=== PATIENT | female | born 1935 | race Two or more races ===

== ENCOUNTER 2024-01-12 12:45 | Inpatient (IN) | payer MEDICARE, MEDICAID ==
[~2024-01-12] VITALS: Ht 152.4 cm; Wt 48.3 kg
[~2024-01-12 12:45] MED LIST: ALEN70TA74 PO; CHOL20009 PO; ESTR0.1C5 VA; LEV75T PO; LISI10TA34 PO; MORP30TA PO; TRAV0.00 EACHEYE
[2024-01-12] MEDS: SODIUM CHLORIDE 0.9% 1,000 ML IV ONE (13:28)
[2024-01-12] MEDS: ONDANSETRON HCL 4 MG/2 ML VIAL IV ONE (13:37)
[2024-01-12] MEDS: MORPHINE SULFATE 4 MG/ML SYR/VIAL IV ONE (13:37)
[2024-01-12] MEDS: PANTOPRAZOLE 40 MG/10 ML VIAL INJ IV ONE (13:37)
[2024-01-12 13:44] LABS: Eosinophils # (auto) 0 10 ^3/uL (0-0.8); Hemoglobin 11.2 g/dL (12.2-16.2); Monocytes # (auto) 0.3 10 ^3/uL (0-1.3); Neutrophils # (auto) 7.3 10 ^3/uL (1.6-8.6)
[2024-01-12 13:47] LABS: Basophils # (auto) 0 10 ^3/uL (0-0.2); Basophils % (auto) 0.4 % (0.0-2.0); Eosinophils % (auto) 0.2 % (0.0-7.0); Hematocrit 33.2 % (36.0-46.0); Lymphocytes # (auto) 0.7 10 ^3/uL (0.4-5.4); Lymphocytes % (auto) 8.2 % (10.0-50.0); Mean Corpuscular Hemoglobin 28.7 pg (28.0-32.0); Mean Corpuscular Hgb Conc. 33.8 g/dL (32.0-36.0); Mean Corpuscular Volume 84.9 fL (80.0-100.0); Monocytes % (auto) 4.1 % (0.0-12.0); Neutrophils % (auto) 87.1 % (37.0-80.0); Red Blood Cells 3.91 10^6/uL (4.0-5.20); White Blood Cell 8.3 10^3/uL (4.4-10.8)
[2024-01-12] MEDS ORDERED: TEMAZEPAM 15 MG CAP PO PRN (14:45)
[2024-01-12] MEDS ORDERED: ACETAMINOPHEN 325 MG TAB PO PRN (14:45)
[2024-01-12] MEDS ORDERED: NITROGLYCERIN 0.4 MG SL TAB SL PRN (14:45)
[2024-01-12] MEDS: ENOXAPARIN SOD 40 MG/0.4 ML SYRINGE SC SCH (14:47)
[2024-01-12 15:36] LABS: Albumin 3.9 g/dL (3.2-4.8); Alkaline Phosphatase 70 U/L (46-116); Anion Gap 12 (5-15); Aspartate Aminotransferase < 8 U/L (13-40); BUN/Creatinine Ratio 29.8 (10.0-20.0); Calcium 8.8 mg/dL (8.7-10.4); Carbon Dioxide 14 mmol/L (20-30); Chloride 112 mmol/L (98-107); Glucose 138 mg/dL (74-106); Sodium 138 mmol/L (136-145)
[2024-01-12 15:37] LABS: Bilirubin, Total 0.2 mg/dL (0.2-1.0); Total Protein 7.5 g/dL (5.7-8.2)
[2024-01-12 15:41] LABS: Alanine Aminotransferase < 9 U/L (7-40)
[2024-01-12 15:44] LABS: Blood Urea Nitrogen 138 mg/dL (9-23); Potassium 5.8 mmol/L (3.5-5.1)
[2024-01-12 16:51] VITALS: PULSE 86; RESP 16; O2SAT 98
[2024-01-12 17:00] LABS: INR 1.3 (0.9-1.15); Prothrombin Time 13.5 sec (9.3-11.8)
[2024-01-12 18:33] LABS: Lipase 46 U/L (12-53)
[2024-01-12 19:30] VITALS: PULSE 89; RESP 13; O2SAT 97
[2024-01-12] MEDS: SODIUM CHLORIDE 0.9% 1,000 ML IV SCH ×2 (19:30)
[2024-01-12 20:30] LABS: Urine Bacteria None Seen /hpf (None Seen)
[2024-01-12 20:37] LABS: Urine Blood 1+ /uL (Negative); Urine Clarity Ex.Turbid (Clear); Urine Color Dark-Brown (Yellow); Urine Protein, UAD 1+ (Negative); Urine Specific Gravity 1.017 (1.001-1.035); Urine Urobilinogen Normal (Negative); Urine WBC 576 /hpf (0 - 5); Urine WBC Clumps PRESENT /hpf (None Seen)
[2024-01-12] MEDS: InsuLIN REG 1unit/0.01ml Soln (100units/ml) IV ONE (21:45)
[2024-01-12] MEDS: ALBUTEROL SULF 2.5 MG/0.5ML(0.5%) NEB SOLN ONE (22:01)
[2024-01-12] MEDS: ALBUTEROL SULF 2.5 MG/0.5ML(0.5%) NEB SOLN NEB ONE (22:01)
[2024-01-12] MEDS: SODIUM ZIRCONIUM CYCL 10 GM PAK PO ONE (22:51)
[2024-01-12] MEDS: DEXTROSE (50%) 50ML SYRG IV ONE (22:51)
[2024-01-12] MEDS: CALCIUM GLUC 1,000mg/50ml-NS 50 ML IV ONE (22:51)
[2024-01-13] VITALS (12 sets, daily range): BP systolic 94–142; BP diastolic 46–61; PULSE 82–109; RESP 12–20; TEMP 97.9–98.3; O2SAT 94–100
[2024-01-13 07:11] LABS: Basophils # (auto) 0 10 ^3/uL (0-0.2); Basophils % (auto) 0.6 % (0.0-2.0); Eosinophils # (auto) 0 10 ^3/uL (0-0.8); Eosinophils % (auto) 0.6 % (0.0-7.0); Hematocrit 27.9 % (36.0-46.0); Hemoglobin 9.3 g/dL (12.2-16.2); Lymphocytes # (auto) 1.3 10 ^3/uL (0.4-5.4); Lymphocytes % (auto) 17.4 % (10.0-50.0); Mean Corpuscular Hemoglobin 28.6 pg (28.0-32.0); Mean Corpuscular Hgb Conc. 33.3 g/dL (32.0-36.0); Monocytes # (auto) 0.4 10 ^3/uL (0-1.3); Monocytes % (auto) 5.8 % (0.0-12.0); Neutrophils # (auto) 5.5 10 ^3/uL (1.6-8.6); Neutrophils % (auto) 75.6 % (37.0-80.0); Red Blood Cells 3.24 10^6/uL (4.0-5.20); Red Cell Distribution Width 17.1 % (11.8-14.3); White Blood Cell 7.3 10^3/uL (4.4-10.8)
[2024-01-13 07:31] LABS: Albumin 3.4 g/dL (3.2-4.8); Alkaline Phosphatase 59 U/L (46-116); Anion Gap 9 (5-15); Aspartate Aminotransferase < 8 U/L (13-40); Bilirubin, Total 0.2 mg/dL (0.2-1.0); Calcium 8.9 mg/dL (8.7-10.4); Carbon Dioxide 15 mmol/L (20-30); Chloride 119 mmol/L (98-107); Glucose 122 mg/dL (74-106); Potassium 5.1 mmol/L (3.5-5.1); Sodium 143 mmol/L (136-145); Total Protein 6.7 g/dL (5.7-8.2)
[2024-01-13 07:43] LABS: Alanine Aminotransferase < 9 U/L (7-40)
[2024-01-13 07:44] LABS: Blood Urea Nitrogen 106 mg/dL (9-23)
[2024-01-13] MEDS ORDERED: FLUMAZENIL 0.1 MG/ML INJ 10ML MDV IV ONE (08:25)
[2024-01-13] MEDS ORDERED: SODIUM CHLORIDE LOCK 10 ML ONE (08:25)
[2024-01-13] MEDS ORDERED: NALOXONE HCL 0.4 MG/ML VIAL ONE (08:25)
[2024-01-13] MEDS ORDERED: diphenhdrAMINE HCL 50 MG/1 ML VL ONE (08:26)
[2024-01-13] MEDS: LIDOCAINE VISCOUS 2% 15ML UD ONE (08:48)
[2024-01-13] MEDS: fentaNYL CITRATE 100 MCG/2 ML VL ONE (08:50)
[2024-01-13] MEDS: MIDAZOLAM HCL 5 MG/ML-1ML VIAL ONE (08:50)
[2024-01-13] MEDS ORDERED: PANTOPRAZOLE 40 MG/10 ML VIAL INJ IV SCH (10:00)
[2024-01-13] MEDS: SUCRALFATE 1 GM/10 ML ORAL SUSP PO SCH (11:25)
[2024-01-13] MEDS ORDERED: LATA0.008 EACHEYE (12:24)
[2024-01-13] MEDS: SODIUM CHLORIDE 0.9% 1,000 ML IV SCH (13:50)
[2024-01-13] MEDS: cefTRIAXone 1GM/50ML D5W 50 ML IV SCH (18:15)
[2024-01-13] MEDS: PANTOPRAZOLE 40 MG TAB PO SCH (18:15)
[2024-01-13] MEDS ORDERED: LORazepam 2MG/ML-1ML VIAL IV PRN (21:30)
[2024-01-13 22:42] LABS: Creatinine, Urine 35.83 mg/dL (30.0-125.0)
[2024-01-13 22:45] LABS: Protein, Urine 348.3 mg/dL (0.0-11.9); Urine Protein/Creatinine Ratio 9.72
[2024-01-13 22:49] LABS: Folate (Folic Acid) 7.86 ng/mL (>5.38)
[2024-01-14] VITALS (8 sets, daily range): BP systolic 95–143; BP diastolic 56–141; PULSE 52–100; RESP 12–20; TEMP 98–99.3; O2SAT 94–99
[2024-01-14 11:29] LABS: Chloride 125 mmol/L (98-107); Potassium 4.9 mmol/L (3.5-5.1)
[2024-01-14 11:30] LABS: Anion Gap 8 (5-15); Basophils # (auto) 0 10 ^3/uL (0-0.2); Basophils % (auto) 0.7 % (0.0-2.0); Carbon Dioxide 16 mmol/L (20-30); Eosinophils # (auto) 0.3 10 ^3/uL (0-0.8); Hematocrit 28.5 % (36.0-46.0); Hemoglobin 9.3 g/dL (12.2-16.2); Lymphocytes # (auto) 0.9 10 ^3/uL (0.4-5.4); Lymphocytes % (auto) 15.3 % (10.0-50.0); Mean Corpuscular Hemoglobin 27.9 pg (28.0-32.0); Mean Corpuscular Hgb Conc. 32.5 g/dL (32.0-36.0); Mean Corpuscular Volume 85.9 fL (80.0-100.0); Monocytes # (auto) 0.3 10 ^3/uL (0-1.3); Monocytes % (auto) 5.2 % (0.0-12.0); Neutrophils # (auto) 4.5 10 ^3/uL (1.6-8.6); Neutrophils % (auto) 73.8 % (37.0-80.0); Red Blood Cells 3.32 10^6/uL (4.0-5.20); Red Cell Distribution Width 18.2 % (11.8-14.3); White Blood Cell 6.1 10^3/uL (4.4-10.8)
[2024-01-14 11:31] LABS: Calcium 8.1 mg/dL (8.7-10.4)
[2024-01-14 11:32] LABS: % Iron Saturation 26.8 % (15-50)
[2024-01-14 11:35] LABS: Glucose 102 mg/dL (74-106)
[2024-01-14 11:36] LABS: BUN/Creatinine Ratio 30.1 (10.0-20.0)
[2024-01-14 11:37] LABS: Blood Urea Nitrogen 75 mg/dL (9-23); Sodium 149 mmol/L (136-145)
[2024-01-14] MEDS: HYDROcodone-ACET 5/325MG TAB PO PRN (19:36)
[2024-01-14] MEDS: SODIUM BICARBONATE 650 MG TAB PO SCH (21:35)
[2024-01-15] VITALS (10 sets, daily range): BP systolic 135–158; BP diastolic 64–91; PULSE 74–96; RESP 16–19; TEMP 97.8–98.9; O2SAT 97–100
[2024-01-15] MEDS: MORPHINE SULFATE INJ 2 MG/ml SYRG IV PRN (01:42)
[2024-01-15] MEDS: SOD CHL 0.45% 1,000 ML IV SCH (04:50)
[2024-01-15 07:54] LABS: Basophils # (auto) 0 10 ^3/uL (0-0.2); Basophils % (auto) 0.3 % (0.0-2.0); Eosinophils # (auto) 0.5 10 ^3/uL (0-0.8); Eosinophils % (auto) 5.9 % (0.0-7.0); Hematocrit 31.2 % (36.0-46.0); Hemoglobin 10.3 g/dL (12.2-16.2); Lymphocytes # (auto) 1.6 10 ^3/uL (0.4-5.4); Lymphocytes % (auto) 18.8 % (10.0-50.0); Mean Corpuscular Hemoglobin 28.5 pg (28.0-32.0); Mean Corpuscular Hgb Conc. 32.9 g/dL (32.0-36.0); Mean Corpuscular Volume 86.7 fL (80.0-100.0); Monocytes # (auto) 0.3 10 ^3/uL (0-1.3); Monocytes % (auto) 4.1 % (0.0-12.0); Neutrophils % (auto) 70.9 % (37.0-80.0); White Blood Cell 8.5 10^3/uL (4.4-10.8)
[2024-01-15 07:57] LABS: Albumin 3.3 g/dL (3.2-4.8); Alkaline Phosphatase 61 U/L (46-116); Anion Gap 9 (5-15); Aspartate Aminotransferase 9 U/L (13-40); BUN/Creatinine Ratio 20.2 (10.0-20.0); Bilirubin, Total 0.2 mg/dL (0.2-1.0); Calcium 8.6 mg/dL (8.7-10.4); Carbon Dioxide 16 mmol/L (20-30); Chloride 123 mmol/L (98-107); Glucose 100 mg/dL (74-106); Sodium 148 mmol/L (136-145); Total Protein 6.6 g/dL (5.7-8.2)
[2024-01-15 07:58] LABS: Alanine Aminotransferase < 9 U/L (7-40); Blood Urea Nitrogen 39 mg/dL (9-23)
[2024-01-15 09:06] LABS: Anti-Nuclear Antibody Direct Negative (Negative)
[2024-01-15] MEDS: ENOXAPARIN SOD 30 MG/0.3 ML SYRINGE SC SCH (10:14)
[2024-01-15] MEDS: ONDANSETRON HCL 4 MG/2 ML VIAL IV PRN (11:47)
[2024-01-15] MEDS: DOCUSATE SOD 100 MG CAP PO PRN (20:33)
[2024-01-16] VITALS (8 sets, daily range): BP systolic 131–156; BP diastolic 63–76; PULSE 70–104; RESP 14–20; TEMP 98–98.7; O2SAT 94–100
[2024-01-16 06:50] LABS: Basophils # (auto) 0 10 ^3/uL (0-0.2); Basophils % (auto) 0.1 % (0.0-2.0); Eosinophils # (auto) 0.2 10 ^3/uL (0-0.8); Eosinophils % (auto) 1.2 % (0.0-7.0); Hematocrit 30.6 % (36.0-46.0); Lymphocytes # (auto) 0.9 10 ^3/uL (0.4-5.4); Lymphocytes % (auto) 7.2 % (10.0-50.0); Mean Corpuscular Hemoglobin 27.6 pg (28.0-32.0); Mean Corpuscular Hgb Conc. 32.8 g/dL (32.0-36.0); Mean Corpuscular Volume 84.4 fL (80.0-100.0); Monocytes # (auto) 0.3 10 ^3/uL (0-1.3); Monocytes % (auto) 2.5 % (0.0-12.0); Neutrophils # (auto) 10.9 10 ^3/uL (1.6-8.6); Nucleated Red Blood Cells % 0.1 %; Red Blood Cells 3.62 10^6/uL (4.0-5.20); Red Cell Distribution Width 17.6 % (11.8-14.3); White Blood Cell 12.2 10^3/uL (4.4-10.8)
[2024-01-16 07:17] LABS: Albumin 3.2 g/dL (3.2-4.8); Alkaline Phosphatase 63 U/L (46-116); Anion Gap 9 (5-15); Aspartate Aminotransferase < 8 U/L (13-40); BUN/Creatinine Ratio 16.5 (10.0-20.0); Bilirubin, Total 0.2 mg/dL (0.2-1.0); Calcium 8.8 mg/dL (8.7-10.4); Carbon Dioxide 20 mmol/L (20-30); Chloride 120 mmol/L (98-107); Glucose 117 mg/dL (74-106); Potassium 3.3 mmol/L (3.5-5.1); Sodium 149 mmol/L (136-145); Total Protein 6.4 g/dL (5.7-8.2)
[2024-01-16 07:22] LABS: Alanine Aminotransferase < 9 U/L (7-40); Blood Urea Nitrogen 29 mg/dL (9-23)
[2024-01-16] MEDS: D5W 5% 1,000 ML IV SCH (12:19)
[2024-01-16] MEDS: MORPHINE SULFATE 4 MG/ML SYR/VIAL IV PRN (12:21)
[2024-01-16] MEDS: POTASSIUM CHL 20 Meq TABLET PO ONE (16:42)
[2024-01-16] MEDS: LINEZOLID 600MG/300ML 300 ML IV SCH (23:29)
[2024-01-17] VITALS (8 sets, daily range): BP systolic 127–167; BP diastolic 55–77; PULSE 72–107; RESP 14–21; TEMP 98.3–98.8; O2SAT 98–100
[2024-01-17 15:20] LABS: Basophils # (auto) 0 10 ^3/uL (0-0.2); Basophils % (auto) 0.2 % (0.0-2.0); Eosinophils # (auto) 0.4 10 ^3/uL (0-0.8); Eosinophils % (auto) 3.9 % (0.0-7.0); Hematocrit 27.4 % (36.0-46.0); Hemoglobin 8.7 g/dL (12.2-16.2); Lymphocytes # (auto) 1.4 10 ^3/uL (0.4-5.4); Lymphocytes % (auto) 12.6 % (10.0-50.0); Mean Corpuscular Hemoglobin 27.9 pg (28.0-32.0); Mean Corpuscular Hgb Conc. 31.8 g/dL (32.0-36.0); Mean Corpuscular Volume 87.8 fL (80.0-100.0); Monocytes # (auto) 0.4 10 ^3/uL (0-1.3); Monocytes % (auto) 3.6 % (0.0-12.0); Neutrophils # (auto) 8.9 10 ^3/uL (1.6-8.6); Neutrophils % (auto) 79.7 % (37.0-80.0); Red Blood Cells 3.12 10^6/uL (4.0-5.20); Red Cell Distribution Width 18.3 % (11.8-14.3); White Blood Cell 11.1 10^3/uL (4.4-10.8)
[2024-01-17 15:37] LABS: Alanine Aminotransferase < 9 U/L (7-40); Albumin 2.7 g/dL (3.2-4.8); Alkaline Phosphatase 53 U/L (46-116); Anion Gap 7 (5-15); Aspartate Aminotransferase < 8 U/L (13-40); BUN/Creatinine Ratio 9.3 (10.0-20.0); Bilirubin, Total 0.2 mg/dL (0.2-1.0); Blood Urea Nitrogen 14 mg/dL (9-23); Carbon Dioxide 20 mmol/L (20-30); Chloride 110 mmol/L (98-107); Glucose 139 mg/dL (74-106); Magnesium 1.5 mg/dL (1.6-2.6); Potassium 3.1 mmol/L (3.5-5.1); Sodium 137 mmol/L (136-145); Total Protein 5.8 g/dL (5.7-8.2)
[2024-01-18] VITALS (8 sets, daily range): BP systolic 102–141; BP diastolic 47–69; PULSE 70–84; RESP 16–22; TEMP 97.4–98.9; O2SAT 92–100
[2024-01-18 05:06] LABS: Albumin 2.4 g/dL (2.9-4.4); Alpha-1-Globulin 0.2 g/dL (0.0-0.4); Alpha-2-Globulin 0.8 g/dL (0.4-1.0); Gamma Globulin 1.9 g/dL (0.4-1.8); Globulin Total 3.7 g/dL (2.2-3.9); Protein Total Serum 6.1 g/dL (6.0-8.5)
[2024-01-18 05:46] LABS: Basophils # (auto) 0 10 ^3/uL (0-0.2); Basophils % (auto) 0.1 % (0.0-2.0); Eosinophils # (auto) 0.3 10 ^3/uL (0-0.8); Eosinophils % (auto) 3.6 % (0.0-7.0); Hematocrit 26.4 % (36.0-46.0); Hemoglobin 8.8 g/dL (12.2-16.2); Lymphocytes # (auto) 1.1 10 ^3/uL (0.4-5.4); Lymphocytes % (auto) 12.1 % (10.0-50.0); Mean Corpuscular Hemoglobin 28.3 pg (28.0-32.0); Mean Corpuscular Hgb Conc. 33.2 g/dL (32.0-36.0); Mean Corpuscular Volume 85.1 fL (80.0-100.0); Monocytes # (auto) 0.3 10 ^3/uL (0-1.3); Monocytes % (auto) 3.6 % (0.0-12.0); Neutrophils # (auto) 7.5 10 ^3/uL (1.6-8.6); Neutrophils % (auto) 80.6 % (37.0-80.0); Red Cell Distribution Width 17.3 % (11.8-14.3); White Blood Cell 9.3 10^3/uL (4.4-10.8)
[2024-01-18 05:58] LABS: Albumin 2.7 g/dL (3.2-4.8); Alkaline Phosphatase 53 U/L (46-116); Anion Gap 7 (5-15); Aspartate Aminotransferase 9 U/L (13-40); BUN/Creatinine Ratio 7.1 (10.0-20.0); Bilirubin, Total 0.2 mg/dL (0.2-1.0); Blood Urea Nitrogen 10 mg/dL (9-23); Calcium 8.1 mg/dL (8.7-10.4); Carbon Dioxide 20 mmol/L (20-30); Chloride 107 mmol/L (98-107); Glucose 125 mg/dL (74-106); Magnesium 1.2 mg/dL (1.6-2.6); Potassium 2.7 mmol/L (3.5-5.1); Sodium 134 mmol/L (136-145)
[2024-01-18 05:59] LABS: Total Protein 5.5 g/dL (5.7-8.2)
[2024-01-18 06:05] LABS: Alanine Aminotransferase < 9 U/L (7-40)
[2024-01-18] MEDS: POTASSIUM CHL 20 Meq TABLET PO ONE (09:33)
[2024-01-18] MEDS: POTASSIUM CHL 20MEQ/100ML 100 ML IV ONE (09:33)
[2024-01-18] MEDS: MAGNESIUM SULFATE 1GM/100ML 100 ML IV SCH (14:00)
[2024-01-19] VITALS (8 sets, daily range): BP systolic 117–136; BP diastolic 55–71; PULSE 65–89; RESP 16–18; TEMP 98.1–98.9; O2SAT 96–99
[2024-01-19 06:43] LABS: Anion Gap 6 (5-15); Calcium 8.3 mg/dL (8.7-10.4); Carbon Dioxide 25 mmol/L (20-30); Chloride 106 mmol/L (98-107); Potassium 2.8 mmol/L (3.5-5.1); Sodium 137 mmol/L (136-145)
[2024-01-19 06:49] LABS: BUN/Creatinine Ratio 7.1 (10.0-20.0); Blood Urea Nitrogen 9 mg/dL (9-23); Glucose 104 mg/dL (74-106)
[2024-01-19] MEDS: MAGNESIUM SULFATE 1GM/100ML 100 ML IV SCH (07:14)
[2024-01-19] MEDS: POTASSIUM CHL 20MEQ/100ML 100 ML IV ONE (09:36)
[2024-01-19] MEDS: POTASSIUM EFFERVESENT TAB 25 MEQ PO ONE (09:36)
[2024-01-19] MEDS: LOPERAMIDE HCL 2 MG CAP/TAB PO PRN (17:29)
[2024-01-19] MEDS: SODIUM BICARBONATE 650 MG TAB PO SCH (21:24)
[2024-01-19] MEDS: LATANOPROST 0.005 % OPTH(EYE) SOL 2.5ML EACHEYE SCH (22:19)
[2024-01-20] VITALS (8 sets, daily range): BP systolic 100–155; BP diastolic 52–71; PULSE 65–78; RESP 16–24; TEMP 98–99; O2SAT 96–99
[2024-01-20 09:27] LABS: Basophils # (auto) 0 10 ^3/uL (0-0.2); Basophils % (auto) 0.4 % (0.0-2.0); Eosinophils # (auto) 0.1 10 ^3/uL (0-0.8); Hematocrit 28.4 % (36.0-46.0); Hemoglobin 9.6 g/dL (12.2-16.2); Lymphocytes # (auto) 1.3 10 ^3/uL (0.4-5.4); Lymphocytes % (auto) 27.3 % (10.0-50.0); Mean Corpuscular Hemoglobin 28.5 pg (28.0-32.0); Mean Corpuscular Hgb Conc. 33.7 g/dL (32.0-36.0); Mean Corpuscular Volume 84.5 fL (80.0-100.0); Monocytes # (auto) 0.3 10 ^3/uL (0-1.3); Monocytes % (auto) 6.7 % (0.0-12.0); Neutrophils # (auto) 3.1 10 ^3/uL (1.6-8.6); Neutrophils % (auto) 62.6 % (37.0-80.0); Red Blood Cells 3.36 10^6/uL (4.0-5.20); Red Cell Distribution Width 17.2 % (11.8-14.3); White Blood Cell 4.9 10^3/uL (4.4-10.8)
[2024-01-20 09:50] LABS: Alanine Aminotransferase 13 U/L (7-40); Albumin 2.9 g/dL (3.2-4.8); Alkaline Phosphatase 56 U/L (46-116); Anion Gap 6 (5-15); Aspartate Aminotransferase 14 U/L (13-40); BUN/Creatinine Ratio 6.5 (10.0-20.0); Bilirubin, Total 0.2 mg/dL (0.2-1.0); Blood Urea Nitrogen 8 mg/dL (9-23); Calcium 8.3 mg/dL (8.7-10.4); Carbon Dioxide 26 mmol/L (20-30); Chloride 106 mmol/L (98-107); Glucose 98 mg/dL (74-106); Magnesium 1.7 mg/dL (1.6-2.6); Potassium 3.6 mmol/L (3.5-5.1); Sodium 138 mmol/L (136-145); Total Protein 5.9 g/dL (5.7-8.2)
[2024-01-20] MEDS: FLORASTOR (S. BOULARDII) 250 MG CAP PO SCH (16:10)
[2024-01-20] MEDS: MORPHINE SULFATE INJ 2 MG/ml SYRG IV PRN (19:52)
[2024-01-20] MEDS: DOXYCYCLINE 100 MG TAB/CAP PO SCH (21:58)
[2024-01-21] MEDS: HYDROmorphone HCL 2 MG/ML VL/or syr IV PRN (00:26)
[2024-01-21 01:00] VITALS: BP 110/60; PULSE 70; RESP 16; TEMP 99.2; O2SAT 98
[2024-01-21 05:00] VITALS: BP 125/70; PULSE 69; RESP 18; TEMP 97.8; O2SAT 99
[2024-01-21 08:00] VITALS: PULSE 70; O2SAT 96
[2024-01-21 09:00] VITALS: BP 115/61; PULSE 74; RESP 17; TEMP 98.2; O2SAT 97
[2024-01-21] MEDS ORDERED: SUCR1TAB31 OR (09:25)
[2024-01-21] MEDS ORDERED: LINE1TAB6 PO (09:25)
[2024-01-21] MEDS ORDERED: PANT40TA2 PO (09:25)
[2024-01-21] MEDS ORDERED: SODI650T PO (09:25)
[2024-01-21] MEDS ORDERED: LOP2C PO (09:25)
[2024-01-21] MEDS ORDERED: DOXY-448 PO (09:36)
[2024-01-21] MEDS: LEVOTHYROXINE SODIUM 25 MCG TAB PO SCH (10:01)
[2024-01-21] MEDS: LEVOTHYROXINE SODIUM 50 MCG TAB PO SCH (10:01)
[2024-01-21] MEDS: LISINOPRIL 5 MG TAB PO SCH (10:02)
[2024-01-21 12:24] VITALS: BP 115/61; PULSE 74; RESP 17; TEMP 36.8; O2SAT 97
[2024-01-21 13:00] VITALS: BP 139/61; PULSE 72; RESP 17; TEMP 99; O2SAT 98
[2024-01-23] MEDS ORDERED: LOP2C PO (14:43)
== END 2024-01-21 16:15 | disposition home health service (06) | DRG 383 ==
LOC: EDBD 12:45 → ER 12:54 → TELE 14:39 → TELE-CENTR 23:25
PROVIDERS: ADMIT Nurse Practitioner; ATTEND Nurse Practitioner
PROC: 0DB68ZX Excision of Stomach, Via Natural or Artificial Opening Endoscopic, Diagnostic (ICD-10-PCS; principal; 2024-01-13 08:45)
DX: K25.9 Gastric ulcer, unspecified as acute or chronic, without hemorrhage or perforation (principal); G93.41 Metabolic encephalopathy; N30.00 Acute cystitis without hematuria; E87.20 Acidosis, unspecified; N17.9 Acute kidney failure, unspecified; E87.0 Hyperosmolality and hypernatremia; E44.1 Mild protein-calorie malnutrition; K29.70 Gastritis, unspecified, without bleeding; K29.80 Duodenitis without bleeding; K74.60 Unspecified cirrhosis of liver; E87.5 Hyperkalemia; E03.9 Hypothyroidism, unspecified; E78.1 Pure hyperglyceridemia; E86.0 Dehydration; K20.90 Esophagitis, unspecified without bleeding; I27.20 Pulmonary hypertension, unspecified; N18.31 Chronic kidney disease, stage 3a; D64.9 Anemia, unspecified; I12.9 Hypertensive chronic kidney disease with stage 1 through stage 4 chronic kidney disease, or unspecified chronic kidney disease; I37.1 Nonrheumatic pulmonary valve insufficiency; J44.9 Chronic obstructive pulmonary disease, unspecified; M54.50 Low back pain, unspecified; G89.4 Chronic pain syndrome; B95.62 Methicillin resistant Staphylococcus aureus infection as the cause of diseases classified elsewhere; E83.42 Hypomagnesemia; E87.6 Hypokalemia; E04.1 Nontoxic single thyroid nodule; R62.7 Adult failure to thrive; M81.0 Age-related osteoporosis without current pathological fracture; Z96.612 Presence of left artificial shoulder joint; Z90.710 Acquired absence of both cervix and uterus; Z87.891 Personal history of nicotine dependence; Z86.718 Personal history of other venous thrombosis and embolism; Z86.61 Personal history of infections of the central nervous system; Z83.3 Family history of diabetes mellitus; Z82.5 Family history of asthma and other chronic lower respiratory diseases; Z80.6 Family history of leukemia; Z80.0 Family history of malignant neoplasm of digestive organs; Z79.899 Other long term (current) drug therapy; Z74.01 Bed confinement status; Z68.20 Body mass index [BMI] 20.0-20.9, adult
CPT/HCPCS: 36415; 43239; 70450; 70551; 71045; 71250; 74176; 76775; 80048; 80053; 81001; 82570; 82607; 82728; 82746; 82962; 83540; 83550; 83605; 83615; 83690; 83735; 84132; 84155; 84156; 84165; 84443; 84484; 85025; 85045; 85610; 86038; 86880; 87040; 87086; 87088; 87186; 93306; 94640; 95819; 96361; 96374; 96375; G0378; J1815; J2250; J2405; J2470; J3480